=== PATIENT | male | born 1965 | race Caucasian/White ===

== ENCOUNTER 2020-06-09 08:02 | Outpatient (REF) | payer MEDICARE, MEDICAID, SELFPAY | END 2020-06-09 08:03 | disposition home or self-care (01) | LOC: HO.LAB 08:02 | PROVIDERS: PCP Internal Medicine; Visit Provider Internal Medicine | DX: Z20.828 Contact with and (suspected) exposure to other viral communicable diseases (principal) | CPT/HCPCS: C9803; U0003 ==

== ENCOUNTER 2020-09-25 09:31 | Outpatient (REF) | payer OTHER, SELFPAY ==
[2020-09-25 10:58] LABS: MANUAL DIFF FLAG NO
[2020-09-25 11:16] LABS: Basophils Percent Auto 0.2 % (0-2); Eosinophils Absolute Auto 0.1 X10*3/uL (0.0-0.4); Eosinophils Percent Auto 1.6 % (0-4); Hematocrit 44.1 % (42-52); Hemoglobin 14.2 g/dl (14.0-18.0); Imm Gran Abs Auto 0.07 X10*3/uL (0.00-0.03); Imm Gran Pct Auto 0.8 % (0.0-0.4); Lymphocytes Absolute Auto 2.8 X10*3/uL (1.2-4.9); Lymphocytes Percent Auto 31.5 % (20-40); Mean Corpuscular HGB Conc 32.2 g/dl (31.0-36.0); Mean Corpuscular Hemoglobin 27.6 pg (27.0-33.0); Mean Corpuscular Volume 85.8 fL (80-98); Mean Platelet Volume 11.9 fL (9.4-12.4); Monocytes Absolute Auto 0.6 X10*3/uL (0.1-1.2); Monocytes Percent Auto 6.3 % (2-11); Neutrophils Absolute Auto 5.3 X10*3/uL (2.0-8.3); Neutrophils Percent Auto 59.6 % (45-73); Platelet Count 264 X10*3/uL (160-400); Red Blood Count 5.14 X10*6/uL (4.60-5.80); Red Cell Distribution Width 14.4 % (11.0-16.0); White Blood Count 8.9 X10*3/uL (4.8-10.8)
[2020-09-25 11:40] LABS: Alanine Aminotransferase 23 U/L (0-40); Albumin Level 4.1 g/dL (3.5-5.0); Alkaline Phosphatase 86 U/L (39-117); Anion Gap 11 (12-20); Aspartate Amino Transferase 19 U/L (5-37); Bilirubin Total 0.2 mg/dL (0.0-1.0); Blood Urea Nitrogen 6 mg/dL (9-16); Calcium 8.8 mg/dL (8.4-10.2); Carbon Dioxide 27 mmol/L (22-29); Chloride 107 mmol/L (96-108); Cholesterol 165 mg/dL; Estimated Glomerular Filt Rate > 60; Glucose Fasting 104 mg/dL (60-99); HDL Cholesterol 29 mg/dL; LDL Cholesterol Calculated 91 mg/dl; Potassium 4.1 mmol/L (3.3-5.1); Sodium 141 mmol/L (135-145); Total Protein 7.5 g/dL (6.5-8.0); Triglycerides 228 mg/dL
== END 2020-09-25 09:32 | disposition home or self-care (01) ==
LOC: HO.LAB 09:31
PROVIDERS: PCP Internal Medicine; Visit Provider Internal Medicine
DX: K21.9 Gastro-esophageal reflux disease without esophagitis (principal); I10 Essential (primary) hypertension; E78.5 Hyperlipidemia, unspecified
CPT/HCPCS: 36415; 80053; 80061; 85025

== ENCOUNTER 2020-10-27 10:32 | Outpatient (REF) | payer OTHER, SELFPAY ==
--- NOTE | ~2020-10-27 | XR_ITS ---
EXAMINATION: XR CERVICAL SPINE CLINICAL INFORMATION: M54.2 - Cervicalgia COMPARISON: Radiographs cervical spine 08/28/2018 TECHNIQUE: Cervical spine is imaged in 4 views: AP, lateral, odontoid, Fuchs. FINDINGS: Vertebral bodies are normal in height. There is no cervical vertebral compression, spondylolisthesis, destructive process, or prevertebral soft tissue swelling. The odontoid appears intact. There are degenerative disc changes greatest at C6-C7 and C5-C6 with disc narrowing and mild endplate sclerosis and vertebral spurring. There are some soft tissue calcifications again seen bilateral mid neck at superior aspect thyroid cartilage likely carotid artery. XR/XR cervical spine 3V IMPRESSION: 1. Degenerative disc changes C5-C6 and C6-C7. 2. No cervical vertebral compression or spondylolisthesis. 3. Probable carotid artery atherosclerotic calcifications.
== END 2020-10-27 10:33 | disposition home or self-care (01) ==
LOC: HO.XRAY 10:32
PROVIDERS: PCP Internal Medicine; Visit Provider Internal Medicine
DX: M54.2 Cervicalgia (principal)
CPT/HCPCS: 72040

== ENCOUNTER 2020-11-21 10:00 | Outpatient (RCR) | payer OTHER, SELFPAY ==
--- NOTE | 2020-10-28 10:48 | MHC.PT.EP ---
[facility] [place] Office [place] Office [place] Office [address] [place] [address] [phone] F: [phone] F: [phone] F: [phone] F: [phone] Physical Therapy Plan of Care Date of Evaluation: Date of Surgery: N/A Diagnosis: cervicalgia Assessment: pt's symptoms seem postural in nature. pt presents to physical therapy with pain, decreased range of motion, decreased strength, impaired functional mobility, and impaired postural awareness. pt is a good candidate for skilled PT due to age, potential remediation of impairments, typical disease/condition progression and prognosis, comorbidities, and motivation. pt would benefit from tailored strengthening and stretching exercise program, functional training, postural re-training, neuromuscular re-education, modalities as needed for pain, equipment safety demonstration. Frequency and Duration: The patient will be seen 2x/wk for 4 wks Short Term Goals: pt will be I w/ HEP to promote self-management of condition. pt will demo proper sitting posture w/ lumbar roll to promote neutral spine. Senior Living Goals: pt will report a statistically significant improvement in self-reported outcome measure, NDI, to promote return to PLOF. pt will report <2/10 neck pain w/ B shoulder internal rotation to facilitate pain-free return to upper body dressing. Treatment Plan: Modalities to reduce pain, spasms and effusion. Manual therapy to restore motion and function. Therapeutic exercise to improve strength and flexibility. Neuromuscular re-education for posture and balance. Therapeutic activities to return to functional activities of daily living. Electronically signed by: Mali Fisher PT, DPT Please sign and return to therapist. Thank you for your referral.
--- NOTE | 2020-12-05 09:48 | MHC.PT.DC ---
[facility] [place] Office [place] Office [place] Office [address] [place] [address] [phone] F: [phone] F: [phone] F: [phone] F: [phone] Physical Therapy Discharge Report Diagnosis: cervicalgia Date of Surgery: N/A Date of Evaluation: 10/28/20 Date of Discharge: 12/05/20 Treatments to Date: 4 Cancellations to Date: 4 No Shows to Date: 0 Discharge Status: Recommend MD Follow-up Visit Non-compliance Discharge Summary: The patient was reporting symptoms are overall unchanged despite current interventions done to this point. We have held off on cervical stretching and cervical retractions due to reproduction of whistling sensation. He does have a follow-up with Dr. Sifuentes on 12/01/20. We will put him on hold from PT until his follow-up when he will reach out to us whether or not he is to continue w/ therapy at that time. Unfortunately, he has not called our office to either discharge himself or to follow-up with additional appointments. He will be discharged at this time from this physical therapy plan of care. Electronically signed by: Mali Fisher PT, DPT Please sign and return to therapist. Thank you for your referral.
== END 2020-12-05 09:49 | disposition other institution (70) ==
LOC: HO.PT 10:00
PROVIDERS: PCP Internal Medicine; Visit Provider Internal Medicine
DX: M54.2 Cervicalgia (principal)
CPT/HCPCS: 97110; 97112; 97161

== ENCOUNTER 2020-11-21 10:55 | Outpatient (REF) | payer OTHER, SELFPAY ==
[2020-11-21 13:08] LABS: MANUAL DIFF FLAG NO
[2020-11-21 13:15] LABS: Basophils Percent Auto 0.3 % (0-2); Eosinophils Absolute Auto 0.1 X10*3/uL (0.0-0.4); Eosinophils Percent Auto 0.6 % (0-4); Hemoglobin 14.4 g/dl (14.0-18.0); Imm Gran Abs Auto 0.07 X10*3/uL (0.00-0.03); Imm Gran Pct Auto 0.6 % (0.0-0.4); Lymphocytes Absolute Auto 1.7 X10*3/uL (1.2-4.9); Lymphocytes Percent Auto 15.5 % (20-40); Mean Corpuscular Hemoglobin 27.6 pg (27.0-33.0); Mean Corpuscular Volume 86.4 fL (80-98); Monocytes Absolute Auto 0.7 X10*3/uL (0.1-1.2); Monocytes Percent Auto 6.4 % (2-11); Neutrophils Absolute Auto 8.6 X10*3/uL (2.0-8.3); Neutrophils Percent Auto 76.6 % (45-73); Platelet Count 258 X10*3/uL (160-400); Red Blood Count 5.21 X10*6/uL (4.60-5.80); Red Cell Distribution Width 14.6 % (11.0-16.0); White Blood Count 11.2 X10*3/uL (4.8-10.8)
[2020-11-21 13:31] LABS: Glucose Urine UA NEG (NEG); Leukocyte Esterase Urine NEG (NEG); Nitrite Urine NEG (NEG); Specific Gravity - Urine 1.025 (1.005-1.025); Urine Blood TRACE (NEG); Urine Ketones NEG (NEG); Urine Protein NEG (NEG-TRACE)
[2020-11-21 13:36] LABS: Alanine Aminotransferase 18 U/L (0-40); Albumin Level 4.5 g/dL (3.5-5.0); Alkaline Phosphatase 86 U/L (39-117); Anion Gap 11 (12-20); Aspartate Amino Transferase 16 U/L (5-37); Bilirubin Total 0.6 mg/dL (0.0-1.0); Blood Urea Nitrogen 13 mg/dL (9-16); C Reactive Protein 0.87 mg/dL (< or = 0.50); Calcium 9.4 mg/dL (8.4-10.2); Carbon Dioxide 28 mmol/L (22-29); Chloride 104 mmol/L (96-108); Estimated Glomerular Filt Rate > 60; Gamma Glutamyl Transpeptidase 27 U/L (11-51); Glucose Random 91 mg/dL (60-115); Potassium 4.6 mmol/L (3.3-5.1); Sodium 138 mmol/L (135-145)
[2020-11-21 13:42] LABS: Appearance Urine CLEAR; Color Urine YELLOW
[2020-11-21 13:54] LABS: RBC Urine 0-2 /HPF (0); WBC Urine 0 /HPF (0-4)
[2020-11-25 21:37] LABS: Transglutaminase Ab IgG 3 U/mL; Transglutaminase IgA 1 U/mL
== END 2020-11-21 10:56 | disposition home or self-care (01) ==
LOC: HO.LAB 10:55
PROVIDERS: PCP Internal Medicine; Visit Provider Nurse Practitioner
DX: R10.30 Lower abdominal pain, unspecified (principal); K92.1 Melena; R19.7 Diarrhea, unspecified; Z83.71 Family history of colonic polyps
CPT/HCPCS: 36415; 80053; 81001; 82977; 83516; 85025; 86140; 99202

== ENCOUNTER 2020-11-26 11:50 | Outpatient (REF) | payer OTHER, SELFPAY ==
[2020-11-26 12:36] LABS: CDIFF Ag Negative (Negative); CDIFF Internal ctrl Dots and bkg OK (V); CDiff Toxin Negative (Negative)
== END 2020-11-26 11:51 | disposition home or self-care (01) ==
LOC: HO.LNP 11:50
PROVIDERS: Visit Provider Nurse Practitioner
DX: R10.30 Lower abdominal pain, unspecified (principal); K92.1 Melena
CPT/HCPCS: 87045; 87046; 87324; 87338; 87449

== ENCOUNTER 2020-12-01 09:04 | Outpatient (REF) | payer OTHER, SELFPAY ==
[2020-12-01 10:30] LABS: Prostate Specific Antigen 1.48 ng/mL (<0.05-4.0)
== END 2020-12-01 09:05 | disposition home or self-care (01) ==
LOC: HO.LAB 09:04
PROVIDERS: PCP Internal Medicine; Visit Provider Nurse Practitioner Family
DX: Z12.5 Encounter for screening for malignant neoplasm of prostate (principal)
CPT/HCPCS: 36415; 84153

== ENCOUNTER 2021-01-01 18:30 | Outpatient (REF) | payer OTHER, SELFPAY ==
--- NOTE | ~2021-01-01 | MR_ITS ---
EXAMINATION: MRI OF THE BRAIN WITHOUT CONTRAST CLINICAL INFORMATION: Headache. COMPARISON: CT scan of the head 07/28/2016. MRI scan of the brain 04/29/2011. TECHNIQUE: Multiplanar, multisequence MR imaging was performed through the brain using routine sequences without intravenous contrast. FINDINGS: No diffusion abnormalities are identified to suggest an acute or subacute infarct. No mass effect or midline shift is seen. The ventricles are normal in size. There are a few scattered foci of increased T2 and place signal in the subcortical white matter predominantly in the bilateral frontal lobes, most consistent with chronic microvascular ischemic changes. No extra-axial fluid collections are seen. The brainstem is normal. No pathologic magnetic susceptibility artifact is identified on the gradient refocused acquisition. The craniovertebral junction appears normal; the cerebellar tonsils have normal position and contour. Marrow signal is homogenous. The midline structures and pituitary axis appear normal. The major intracranial flow-voids at the level of the wiyot of Valentin are preserved. The dural venous sinus flow-voids are maintained. The mastoid air cells are well-aerated. There is mild mucosal thickening the anterior ethmoid sinuses bilaterally. The nasal septum is deviated to the left. MR/MR head/brain wo con IMPRESSION: 1. There are no acute bleeds or infarcts. No masses are demonstrated. 2. There is paranasal sinus or mastoid ossification. The cerebellar tonsils have normal position and contour. The pituitary axis appears normal.
== END 2021-01-01 18:31 | disposition home or self-care (01) ==
LOC: HO.MRI 18:30
PROVIDERS: Visit Provider Internal Medicine
DX: R51.9 Headache, unspecified (principal)
CPT/HCPCS: 70551

== ENCOUNTER 2021-01-06 09:38 | Outpatient (REF) | payer OTHER, SELFPAY ==
[2021-01-06 10:46] LABS: Blood Urea Nitrogen 10 mg/dL (9-16); Estimated Glomerular Filt Rate > 60
== END 2021-01-06 09:39 | disposition home or self-care (01) ==
LOC: HO.LAB 09:38
PROVIDERS: PCP Internal Medicine; Visit Provider Nurse Practitioner
DX: R10.30 Lower abdominal pain, unspecified (principal); R19.7 Diarrhea, unspecified; K92.1 Melena
CPT/HCPCS: 36415; 82565; 84520

== ENCOUNTER 2021-01-07 11:44 | Outpatient (REF) | payer OTHER, SELFPAY ==
--- NOTE | ~2021-01-07 | CT_ITS ---
EXAMINATION: CT ABDOMEN AND PELVIS WITH CONTRAST CLINICAL INFORMATION: Lower abdominal pain COMPARISON: Previous CT of the abdomen and pelvis September 2017 and pelvic ultrasound December 2017 TECHNIQUE: Multidetector volumetric images were obtained from the superior aspect of the liver through the pubic symphysis following administration 85 mL of Omnipaque 350 intravenous contrast. Sagittal and coronal reformatted images were obtained on the technologist's workstation. Oral contrast: Yes This CT examination was performed using dose optimization techniques as appropriate, variously including the following: *Automated exposure control *Adjustment of mA and/or kV according to patient size (this includes techniques or standardized protocols for targeted exams where dose is matched to indication/reason for exam; i.e. extremities or head) *Use of iterative reconstruction technique DLP: 330 mGy-cm FINDINGS: LUNG BASES: There is a 3 mm peripheral or subpleural left lower lobe nodule that is stable axial image 7 series 8. The lung bases are otherwise clear. LIVER, GALLBLADDER, AND BILIARY TREE: The liver is normal in size, shape, and attenuation. No focal hepatic lesion or biliary ductal dilatation is present. The gallbladder is unremarkable with no evidence of radiopaque gallstones, gallbladder wall thickening, or obvious pericholecystic inflammatory changes. PANCREAS: Unremarkable. SPLEEN: Unremarkable. ADRENAL GLANDS: Unremarkable. KIDNEYS AND URETERS: There is a small 5 mm low-attenuation lesion in the lower pole of the left kidney that is stable 2018 probably represents a small cyst. The kidneys are otherwise unremarkable. BLADDER: Unremarkable. GASTROINTESTINAL TRACT: The small and large bowel are unremarkable. The appendix is unremarkable. ABDOMINAL WALL: There is a small umbilical hernia containing fat. LYMPH NODES: There is shotty bilateral inguinal lymphadenopathy, right greater than left. This is similar to previous exam. There is shotty retroperitoneal and periportal lymphadenopathy similar to previous exam as well. There is no ascites. VASCULAR: There is evidence of atherosclerotic disease. No aneurysm is seen. PELVIC VISCERA: Unremarkable. OSSEOUS STRUCTURES: Unremarkable. CT/CT abdomen pelvis w con IMPRESSION: No acute findings. Shotty lymphadenopathy similar to 2018 exam.
[2021-01-07] MEDS: iohexoL 350 MG/ML 100 ML INFUS..BTL 85 ML IV (14:32)
[2021-01-07] MEDS: Barium Sulfate Oral (Berry) 450 ML ORAL.SUSP 900 ML PO (14:33)
== END 2021-01-07 11:45 | disposition home or self-care (01) ==
LOC: HO.CT 11:44
PROVIDERS: PCP Internal Medicine; Visit Provider Nurse Practitioner
DX: R10.30 Lower abdominal pain, unspecified (principal); K92.1 Melena
CPT/HCPCS: 74177; Q9967

== ENCOUNTER → 2021-01-27 10:22 | Outpatient (BNVA) | payer OTHER, SELFPAY | PROVIDERS: PCP Internal Medicine; Visit Provider Nurse Practitioner | DX: K92.1 Melena (principal); K21.9 Gastro-esophageal reflux disease without esophagitis; R10.30 Lower abdominal pain, unspecified; R19.7 Diarrhea, unspecified; Z83.71 Family history of colonic polyps | CPT/HCPCS: 99212 ==

== ENCOUNTER 2021-06-16 09:31 | Day surgery (SDC) | payer OTHER, SELFPAY ==
--- NOTE | 2021-02-13 08:43 | HO.ANESPROP2 ---
HPI - Anesthesia Eval Consult details Narrative: 55yo M for Colonoscopy PMFSH Active Problems Active Problems: All Active Problems (Updated 12/11/20 @ 16:51 by Orly Bustillo MD) Headache (Acute) Adult general medical exam (Acute) Screening for prostate cancer (Acute) Family history of polyps in the colon (Acute) Diarrhea (Acute) Hematochezia (Acute) Lower abdominal pain (Acute) Colon cancer screening (Acute) Bloody stools (Acute) Smoker (Acute) Neck pain (Acute) Lumbar degenerative disc disease (Acute) Allergic rhinitis (Acute) GERD (gastroesophageal reflux disease) (Acute) Essential hypertension (Acute) Past Medical History Medical History Allergic rhinitis Bloody stools Essential hypertension GERD (gastroesophageal reflux disease) Headache Lumbar degenerative disc disease Neck pain Screening for prostate cancer Smoker Family History Family History Father Myocardial infarction Mother Liver cancer Maternal Grandfather Throat cancer Surgical History Surgical History History of colonoscopy History of excision of mass History of incision and drainage History of retained foreign body fully removed Social History Social History Housing: Apartment Alcohol intake: current Alcohol intake frequency: a few times a month Alcohol type: beer Patient Tobacco Use Status: Current everyday Tobacco user Tobacco use type: Cigarette Cigarettes Per Day: 10 Years Smoked: 40 e-Cigarette/Vaping Use: Never Used Second Hand Smoke Exposure: Yes service: No Current occupational status: unemployed and disabled Meds Allergies Allergy/AdvReac Type Severity Reaction Status Date / Time varenicline [From Chantix] Allergy Intermediate vivid Verified 01/27/21 10:46 dreams Exam Exam Date and Time: February 13, 2021 0843 Pertinent Lab Results Pertinent Lab Results: Laboratory Tests 11/21/20 11/21/20 01/06/21 12:02 12:02 09:52 WBC 11.2 H Hgb 14.4 Hct 45.0 Plt Count 258 Sodium 138 Potassium 4.6 Chloride 104 Carbon Dioxide 28 BUN 10 Creatinine 0.99 Assessment and Plan Assessment Anesthesia Assessment: Chart Reviewed
--- NOTE | 2021-04-03 10:35 | HO.ANESPROP2 ---
HPI - Anesthesia Eval Consult details Narrative: 55yo M for Colonoscopy PMFSH Active Problems Active Problems: All Active Problems (Updated 04/01/21 @ 14:09 by Orly Bustillo MD) Onychomycosis (Acute) Moderate recurrent major depression (Acute) Headache (Acute) Adult general medical exam (Acute) Screening for prostate cancer (Acute) Family history of polyps in the colon (Acute) Diarrhea (Acute) Hematochezia (Acute) Lower abdominal pain (Acute) Colon cancer screening (Acute) Bloody stools (Acute) Smoker (Acute) Neck pain (Acute) Lumbar degenerative disc disease (Acute) Allergic rhinitis (Acute) GERD (gastroesophageal reflux disease) (Acute) Essential hypertension (Acute) Past Medical History Medical History Allergic rhinitis Bloody stools Essential hypertension GERD (gastroesophageal reflux disease) Headache Lumbar degenerative disc disease Moderate recurrent major depression Neck pain Onychomycosis Screening for prostate cancer Smoker Family History Family History Father Myocardial infarction Mother Liver cancer Maternal Grandfather Throat cancer Surgical History Surgical History History of colonoscopy History of excision of mass History of incision and drainage History of retained foreign body fully removed Social History Social History Housing: Apartment Alcohol intake: current Alcohol intake frequency: a few times a month Alcohol type: beer Patient Tobacco Use Status: Current everyday Tobacco user Tobacco use type: Cigarette Cigarettes Per Day: 10 Years Smoked: 40 e-Cigarette/Vaping Use: Never Used Second Hand Smoke Exposure: Yes service: No Current occupational status: unemployed and disabled Meds Allergies Allergy/AdvReac Type Severity Reaction Status Date / Time varenicline [From Chantix] Allergy Intermediate vivid Verified 04/01/21 14:01 dreams Exam Exam Date and Time: April 03, 2021 1035 Pertinent Lab Results Pertinent Lab Results: Laboratory Tests 11/21/20 11/21/20 01/06/21 12:02 12:02 09:52 WBC 11.2 H Hgb 14.4 Hct 45.0 Plt Count 258 Sodium 138 Potassium 4.6 Chloride 104 Carbon Dioxide 28 BUN 10 Creatinine 0.99 Assessment and Plan Assessment Anesthesia Assessment: Chart Reviewed
[2021-06-09 13:23] VITALS: BMI 23.7
--- NOTE | 2021-06-15 10:10 | P.CONAN_ITS ---
Documented by User: Mariangel Quinones NP 06/15/21 10:11 HPI - Anesthesia Eval Consult details Narrative: 55yo M for Colonoscopy PMFSH Active Problems Active Problems: All Active Problems (Updated 04/01/21 @ 14:09 by Orly Bustillo MD) Onychomycosis (Acute) Moderate recurrent major depression (Acute) Headache (Acute) Adult general medical exam (Acute) Screening for prostate cancer (Acute) Family history of polyps in the colon (Acute) Diarrhea (Acute) Hematochezia (Acute) Lower abdominal pain (Acute) Colon cancer screening (Acute) Bloody stools (Acute) Smoker (Acute) Neck pain (Acute) Lumbar degenerative disc disease (Acute) Allergic rhinitis (Acute) GERD (gastroesophageal reflux disease) (Acute) Essential hypertension (Acute) Past Medical History Medical History Allergic rhinitis Bloody stools Essential hypertension GERD (gastroesophageal reflux disease) Headache Lumbar degenerative disc disease Moderate recurrent major depression Neck pain Onychomycosis Screening for prostate cancer Smoker Family History Family History Father Myocardial infarction Mother Liver cancer Maternal Grandfather Throat cancer Surgical History Surgical History History of colonoscopy History of excision of mass History of incision and drainage History of retained foreign body fully removed Social History Social History Housing: Apartment Alcohol intake: current Alcohol intake frequency: a few times a month Alcohol type: beer Patient Tobacco Use Status: Current everyday Tobacco user Tobacco use type: Cigarette Cigarettes Per Day: 10 Years Smoked: 40 e-Cigarette/Vaping Use: Never Used Second Hand Smoke Exposure: Yes Have you been hit, kicked, punched, or otherwise hurt by someone within the past year? If so, by whom?: No Are you DNR?: No Advance Directives: No Advance Directives Information Provided: No Advance Directives on File: No Recently lost weight without trying: No Eating poorly because of decreased appetite: No Nutrition Risks: No Nutritional Risk service: No Current occupational status: unemployed and disabled Meds Allergies Allergy/AdvReac Type Severity Reaction Status Date / Time varenicline [From Chantix] Allergy Intermediate vivid Verified 04/01/21 14:01 dreams Exam Exam Date and Time: June 15, 2021 1010 Height,Weight and Vital Signs: Height 5 ft 11 in Weight 77.111 kg Assessment and Plan Assessment Anesthesia Assessment: Chart Reviewed Documented by User: Dusty Leong 06/16/21 10:31 REPLACED BY [facility] Past Medical History Medical History Allergic rhinitis Bloody stools Essential hypertension GERD (gastroesophageal reflux disease) Headache Lumbar degenerative disc disease Moderate recurrent major depression Neck pain Onychomycosis Screening for prostate cancer Smoker Functional capacity: independent ambulation Family History Family History Father Myocardial infarction Mother Liver cancer Maternal Grandfather Throat cancer Family history of problems with anesthesia: No Surgical History Surgical History History of colonoscopy History of excision of mass History of incision and drainage History of retained foreign body fully removed History of Problems with Anesthesia: No Social History Social History Housing: Apartment Alcohol intake: current Alcohol intake frequency: a few times a month Alcohol type: beer Patient Tobacco Use Status: Current everyday Tobacco user Tobacco use type: Cigarette Cigarettes Per Day: 10 Years Smoked: 40 e-Cigarette/Vaping Use: Never Used Second Hand Smoke Exposure: Yes Have you been hit, kicked, punched, or otherwise hurt by someone within the past year? If so, by whom?: No Are you DNR?: No Advance Directives: No Advance Directives Information Provided: No Advance Directives on File: No Recently lost weight without trying: No Eating poorly because of decreased appetite: No Nutrition Risks: No Nutritional Risk service: No Current occupational status: unemployed and disabled Meds Allergies Allergy/AdvReac Type Severity Reaction Status Date / Time varenicline [From Chantix] Allergy Intermediate vivid Verified 04/01/21 14:01 dreams Exam Airway Mallampati Class: I Loose/Missing/Broken Teeth: Yes (Loose right upper ) Heart: rrr Lungs: distant breath sounds Assessment and Plan Final Anesthetic Review Family History of Problems with Anesthesia: No History of Problems with Anesthesia: No NPO: Yes ASA Class: II Final Preanesthetic Review: Lucie Risks/Benef Reviewed Patient Risk: Intermediate Procedure Risk: Intermediate Anesthetic Plan Anesthetic Plan: MAC: Disposition: Standard PACU
[2021-06-16 09:42] VITALS: BP 125/73; PULSE 61; RESP 18; TEMP 36.3; O2SAT 96
[2021-06-16] MEDS: Lactated Ringers 1,000 ML 100 ML IVCONT (10:23)
--- NOTE | 2021-06-16 11:33 | MHC.SHP ---
Pre-Procedural Eval Section A Date of Service: 06/16/21 The patient is an INPATIENT: No The History & Physical has been completed within 30 days and I have reviewed it.: No Section B Chief Complaint: Colon cancer screening, diarrhea, hx of polyps Details of Present Illness: Colon cancer screening, chronic diarrhea, history of colon polyps Relevant Family History (Specify if Yes): Yes Relevant Social History: None Present Medications: see Short Stay Collaborative assessment Medical History: Significant History (Allergic rhinitis Bloody stools Essential hypertension GERD (gastroesophageal reflux disease) Headache Lumbar degenerative disc disease Neck pain Screening for prostate cancer Smoker) History of Previous Operations: Relevant previous surgery/procedure and date(s) (History of colonoscopy History of excision of mass History of incision and drainage History of retained foreign body fully removed) Allergies: Allergies Allergy/AdvReac Type Severity Reaction Status Date / Time varenicline [From Chantix] Allergy Intermediate vivid Verified 04/01/21 14:01 dreams Review of Systems Sugical H&P ROS: Negative: Constitution, Cardiovascular and Respiratory and Yes, Specify: Gastrointestinal (abd pain, diarrhea) Exam Surgical H&P Exam: Normal: Heart, Normal: Lungs, Normal: Extremities and Normal: Abdomen Plan Diagnosis/Plan: Unchanged I have reviewed the history and physical and performed a pertinent physical examination on my patient. No changes have occurred unless specified.
--- NOTE | 2021-06-16 11:50 | P.BOP_ITS ---
Brief Operative Note Date of Service: 06/16/21 Pre-op diagnosis: COLON CANCER SCREENING, abdominal pain, postprandial diarrhea Post-op diagnosis: other (Colon polyp, diverticulosis, hemorrhoids) Procedure: COLONOSCOPY TILL CECUM WITH BIOPSIES AND SNARE POLYPECTOMY Consent: Indications for the procedure and potential complications of bleeding, perforation, reaction to medications and missed diagnosis were discussed with the patient and informed consent was obtained. Instrument: Olympus PCF H 190 L variable stiffness pediatric colonoscope Monitoring: Vital signs and clinical assessment, intermittent blood pressure monitoring, continuous EKG monitoring, Pulse oximetry and Carbon Dioxide monitoring were done throughout the procedure. Colon withdrawl time was 28 minutes. Procedure: The patient was placed in the left lateral decubitis position and pre-procedure medications were administered. After a digital rectal examination of the ano-rectum, the video colonoscope was inserted into the rectum and advanced through the colon to the cecum. The colonoscope was slowly withdrawn in a retrograde panoramic fashion and the colon mucosa was carefully examined including a retroflexed view of the rectum. Findings and interventions are described below. Procedure Difficulty: Without difficulty Findings: Terminal Ileum: Not evaluated Cecum: Normal Ascending Colon: Normal Transverse Colon: Normal Descending Colon: Normal Sigmoid Colon: A 12-15 mm sessile polyp removed with a hot snare. Moderate diverticulosis Rectum: Normal Ano-rectum: Moderate internal hemorrhoids Colon preparation: Fair due to presence of semi-solid and liquid stools throughout the colon. Impression and Post Procedure Diagnosis: Colonoscopy Findings: One medium sized polyp removed Moderate diverticulosis seen in the []colon Moderate hemorrhoids on retroflexed exam. Plan: Await pathology results Patient has an appointment on 06/29/21 in the GI Clinic with Lakesha Pham NP . Repeat Colonoscopy interval based on path results - in 1-2 years due to fair prep. Above findings were reviewed with the patient and colon polyps and diverticulosis handouts were given in the discharge area Surgeon: Lynn Hall MD Anesthesia: MAC (Dr Leong) Was an Stereo Equipment Installer used for this Procedure?: No Stereo Equipment Installer: Gris Khalil Estimated blood loss (mL): 0 Pathology: other (A. random colon bxs, R/O microscopic colitis B. sigmoid polyp) Condition: stable Disposition: PACU
--- NOTE | 2021-06-16 12:29 | PCN2_ITS ---
Brief Operative Note Date of procedure: 06/16/21 Pre-op diagnosis: Colon cancer screening, abdominal pain, postprandial diarrhea Post-op diagnosis: other (Colon polyp, diverticulosis and hemorrhoids.) Procedure: Procedure:? COLONOSCOPY TILL CECUM WITH BIOPSIES AND SNARE POLYPECTOMY Consent: Indications for the procedure and potential complications of bleeding, perforation, reaction to medications and missed diagnosis were discussed with the patient and informed consent was obtained. Instrument: Olympus PCF H 190 L variable stiffness pediatric colonoscope Monitoring: Vital signs and clinical assessment, intermittent blood pressure monitoring, continuous EKG monitoring, Pulse oximetry and Carbon Dioxide monitoring were done throughout the procedure. Colon withdrawl time was 28 minutes. Procedure: The patient was placed in the left lateral decubitis position and pre-procedure medications were administered. After a digital rectal examination of the ano-rectum, the video colonoscope was inserted into the rectum and advanced through the colon to the cecum. The colonoscope was slowly withdrawn in a retrograde panoramic fashion and the colon mucosa was carefully examined including a retroflexed view of the rectum. Findings and interventions are described below. Procedure Difficulty: Without difficulty Findings: Terminal Ileum: Not evaluated Cecum:? Normal Ascending Colon:? Normal Transverse Colon:? Normal Descending Colon:? Normal Sigmoid Colon:? A 12-15 mm sessile polyp removed with a hot snare. Moderate diverticulosis Rectum:? Normal Ano-rectum:? Moderate internal hemorrhoids Colon preparation: ? Fair due to presence of semi-solid and liquid stools throughout the colon. Impression and Post Procedure Diagnosis: Colonoscopy Findings: One medium sized polyp removed Moderate diverticulosis seen in the []colon Moderate hemorrhoids on retroflexed exam. Plan: Await pathology results Patient has an appointment on 06/29/21 in the GI Clinic with? Lakesha Pham NP? . Repeat Colonoscopy interval based on path results - in 1-2 years due to fair prep. Above findings were reviewed with the patient and colon polyps and diverticulosis handouts were given in the discharge area Surgeon:?Lynn Hall MD Anesthesia: MAC (Dr Leong) Surgeon: Lynn Hall Side Laster Staple: Gris Khalil Estimated blood loss (mL): 0 Pathology: other (A. random colon bxs, R/O microscopic colitis? B. sigmoid polyp) Condition: stable Disposition: PACU
[2021-06-16 12:41] VITALS: BP 114/79; PULSE 59; RESP 19; TEMP 36.3; O2SAT 100
[2021-06-16 12:57] VITALS: BP 129/81; PULSE 54; RESP 16; TEMP 36.3; O2SAT 99
== END 2021-06-16 13:35 | disposition home or self-care (01) ==
PROVIDERS: PCP Internal Medicine; Visit Provider Internal Medicine Gastroenterology
PROC: 0DJD8ZZ Inspection of Lower Intestinal Tract, Via Natural or Artificial Opening Endoscopic (ICD-10-PCS; CPT 45378; principal; 2021-06-16 11:10)
DX: Z12.11 Encounter for screening for malignant neoplasm of colon (principal); Z83.71 Family history of colonic polyps; D12.5 Benign neoplasm of sigmoid colon; K57.30 Diverticulosis of large intestine without perforation or abscess without bleeding; K64.8 Other hemorrhoids; R19.7 Diarrhea, unspecified; K21.9 Gastro-esophageal reflux disease without esophagitis; I10 Essential (primary) hypertension; F17.210 Nicotine dependence, cigarettes, uncomplicated; Z79.899 Other long term (current) drug therapy
CPT/HCPCS: 45385; 45380; 88305

== ENCOUNTER → 2021-06-29 12:57 | Outpatient (BNVA) | payer OTHER, SELFPAY | PROVIDERS: PCP Internal Medicine; Referring Provider Internal Medicine; Visit Provider Nurse Practitioner | DX: K21.9 Gastro-esophageal reflux disease without esophagitis (principal); K63.5 Polyp of colon; Z83.71 Family history of colonic polyps | CPT/HCPCS: 99212 ==

== ENCOUNTER 2021-09-01 09:32 | Outpatient (REF) | payer OTHER, SELFPAY ==
--- NOTE | 2021-09-01 11:21 | PFT_ITS ---
Forced vital capacity 97%. FEV1 99%. FEV1/FVC ratio 80. EVI89-95 is 110% and MVV 98%. Post bronchodilator therapy, there is no change. Total lung capacity 97% and residual volume 99%. Diffusion capacity 76%. CONCLUSION: Normal pulmonary function test. No evidence of obstructive or restrictive pulmonary disorder. MD ANDREW Cooley/SHERIF / [id number]
== END 2021-09-01 09:33 | disposition home or self-care (01) ==
LOC: HO.RESP 09:32
PROVIDERS: PCP Internal Medicine; Visit Provider Internal Medicine
DX: R06.00 Dyspnea, unspecified (principal)
CPT/HCPCS: 94060; 94727; 94729

== ENCOUNTER → 2021-11-30 12:47 | Outpatient (BNVA) | payer OTHER, SELFPAY | PROVIDERS: PCP Internal Medicine; Referring Provider Internal Medicine; Visit Provider Nurse Practitioner | DX: K21.9 Gastro-esophageal reflux disease without esophagitis (principal); K63.5 Polyp of colon; R11.2 Nausea with vomiting, unspecified; Z83.71 Family history of colonic polyps | CPT/HCPCS: 99212 ==

== ENCOUNTER 2021-12-04 09:08 | Outpatient (REF) | payer OTHER, SELFPAY ==
[2021-12-04 09:31] LABS: MANUAL DIFF FLAG NO
[2021-12-04 10:17] LABS: Basophils Percent Auto 0.2 % (0-2); Eosinophils Absolute Auto 0.1 X10*3/uL (0.0-0.4); Hemoglobin 13.6 g/dl (14.0-18.0); Imm Gran Abs Auto 0.08 X10*3/uL (0.00-0.03); Imm Gran Pct Auto 0.8 % (0.0-0.4); Lymphocytes Absolute Auto 2.4 X10*3/uL (1.2-4.9); Lymphocytes Percent Auto 22.8 % (20-40); Mean Corpuscular HGB Conc 33.2 g/dl (31.0-36.0); Mean Corpuscular Hemoglobin 27.8 pg (27.0-33.0); Mean Corpuscular Volume 83.7 fL (80.0-98.0); Mean Platelet Volume 11.7 fL (9.4-12.4); Monocytes Absolute Auto 0.6 X10*3/uL (0.1-1.2); Monocytes Percent Auto 6.1 % (2-11); Neutrophils Absolute Auto 7.2 x10*3/uL (2.0-8.3); Neutrophils Percent Auto 69.1 % (45-73); Platelet Count 341 X10*3/uL (160-400); Red Cell Distribution Width 14.2 % (11.0-16.0); White Blood Count 10.4 X10*3/uL (4.8-10.8)
[2021-12-04 10:48] LABS: Alanine Aminotransferase 12 U/L (0-40); Albumin Level 4.4 g/dL (3.5-5.0); Alkaline Phosphatase 93 U/L (39-117); Anion Gap 12 (12-20); Aspartate Amino Transferase 15 U/L (5-37); Bilirubin Total 0.5 mg/dL (0.0-1.0); Blood Urea Nitrogen 11 mg/dL (9-16); Calcium 9.5 mg/dL (8.4-10.2); Carbon Dioxide 29 mmol/L (22-29); Chloride 100 mmol/L (96-108); Cholesterol 166 mg/dL; Estimated Glomerular Filt Rate > 60; Glucose Fasting 99 mg/dL (60-99); HDL Cholesterol 30 mg/dL; LDL Cholesterol Calculated 106 mg/dl; Potassium 3.8 mmol/L (3.3-5.1); Sodium 137 mmol/L (135-145); Total Protein 8.1 g/dL (6.5-8.0); Triglycerides 154 mg/dL
[2021-12-10 06:36] LABS: Transglutaminase Ab IgG <1.0 U/mL; Transglutaminase IgA <1.0 U/mL
== END 2021-12-04 09:09 | disposition home or self-care (01) ==
LOC: HO.LAB 09:08
PROVIDERS: Absent Provider Nurse Practitioner; PCP Internal Medicine; Visit Provider Internal Medicine
DX: K21.9 Gastro-esophageal reflux disease without esophagitis (principal); I10 Essential (primary) hypertension; R11.2 Nausea with vomiting, unspecified
CPT/HCPCS: 36415; 80053; 80061; 84443; 85025; 86364

== ENCOUNTER 2022-01-06 08:33 | Outpatient (REF) | payer OTHER, SELFPAY ==
--- NOTE | ~2022-01-06 | US_ITS ---
EXAMINATION: US ABDOMEN COMPLETE CLINICAL INFORMATION: Nausea with vomiting, unspecified. COMPARISON: CT abdomen and pelvis 01/07/2021. Ultrasound abdomen 11/22/2013. TECHNIQUE: Real-time imaging of the abdominal viscera. FINDINGS: PANCREAS: Normal. The visualized pancreatic head and body are normal in appearance. The remainder of the pancreas is obscured from visualization by the overlying bowel gas. ABDOMINAL AORTA: The proximal, mid and distal segments are nonaneurysmal. There is distal atherosclerotic plaque. INFERIOR VENA CAVA: Visualized portions are normal. LIVER: Normal. The liver is normal in size. The liver contour is normal. Parenchymal echogenicity is normal. No focal hepatic lesion. There is no intrahepatic biliary duct dilatation seen. GALLBLADDER: Normal. The gallbladder is physiologically distended without evidence of stones, sludge, polyps, wall thickening or pericholecystic fluid. COMMON BILE DUCT: Normal in caliber measuring 0.2 cm in diameter. RIGHT KIDNEY: Normal. No hydronephrosis. No renal calculi or focal parenchymal lesions. The kidney measures 10.6 cm in maximum dimension. LEFT KIDNEY: Normal. No hydronephrosis. No renal calculi or focal parenchymal lesions. The kidney measures 11.2 cm in maximum dimension. SPLEEN: Normal. The spleen measures 10.9 cm in maximum dimension. FREE FLUID: None. US/US abdomen complete IMPRESSION: Unremarkable abdominal ultrasound examination, with imaging of the pancreatic tail technically limited.
== END 2022-01-06 08:34 | disposition home or self-care (01) ==
LOC: HO.US 08:33
PROVIDERS: PCP Internal Medicine; Visit Provider Nurse Practitioner
DX: R11.2 Nausea with vomiting, unspecified (principal)
CPT/HCPCS: 76700

== ENCOUNTER → 2022-01-27 08:14 | Outpatient (BNVA) | payer OTHER, SELFPAY | PROVIDERS: PCP Internal Medicine; Visit Provider Nurse Practitioner | DX: K63.5 Polyp of colon (principal); K21.9 Gastro-esophageal reflux disease without esophagitis; R11.2 Nausea with vomiting, unspecified; R19.7 Diarrhea, unspecified; F33.1 Major depressive disorder, recurrent, moderate | CPT/HCPCS: 99212 ==

== ENCOUNTER → 2022-02-18 15:38 | Outpatient (BNVA) | payer OTHER, SELFPAY | PROVIDERS: PCP Internal Medicine; Visit Provider Surgery | DX: L73.2 Hidradenitis suppurativa (principal) | CPT/HCPCS: 99202 ==

== ENCOUNTER 2022-02-24 08:38 | Emergency (ER) | payer OTHER, SELFPAY ==
[2022-02-24 08:42] VITALS: BP 141/95; PULSE 65; RESP 18; TEMP 36.6; O2SAT 98; BMI 23.4
[2022-02-24] MEDS: Famotidine/PF 20 MG/2 ML VIAL IVPUSH (09:39)
[2022-02-24] MEDS: diphenhydrAMINE HCL 50 MG/ML VIAL IVPUSH (09:42)
[2022-02-24 09:43] LABS: Strep A Nucleic Acid Negative (Negative)
[2022-02-24] MEDS: methylPREDNISolone Sod Succ 125 MG/2 ML VIAL IVPUSH (09:43)
[2022-02-24 09:58] LABS: COVID-19 Test Negative (Negative)
--- NOTE | 2022-02-24 10:04 | ED.ALLEREA ---
HPI - Allergic Reaction General Chief complaint: Allergic Reaction Stated complaint: allergic reaction to food Time Seen by Provider: 02/24/22 09:18 Source: patient Mode of arrival: ambulatory History of Present Illness HPI narrative: 56-year-old male with a past medical history of allergic rhinitis, HTN, GERD, hidradenitis, presenting to the ED complaining of throat pruritus, and sore throat worsening since this morning. Admits was started on Amoxicillin for tooth extraction 2 days ago, states itching started soon afterwards. Reports pain with swallowing, dry cough, nasal congestion. Reports mild throat tightness/swelling. Denies CP, SOB, ear pain, rash. Denies other new exposures MD complaint: allergic reaction and other Onset (ago): day(s) Exposure: medication Related Data Previous Rx's Medication Instructions Recorded blood pressure test kit-large #1 ea 07/09/20 ([facility] Blood Pressure Monitor kit) amitriptyline 25 mg tablet 25 mg PO BEDTIME #90 tabs 01/06/21 loratadine 10 mg tablet 10 mg PO DAILY PRN allergy 08/24/21 symptoms 90 days #90 tabs dicyclomine 20 mg tablet 20 mg PO QID 30 days #120 tabs 11/30/21 omeprazole 40 mg capsule,delayed 40 mg PO DAILY 30 days #30 caps 11/30/21 release buspirone 7.5 mg tablet 7.5 mg PO BID 90 days #180 tabs 12/31/21 terbinafine HCl 250 mg tablet 250 mg PO DAILY 90 days #90 tabs 12/31/21 peg 3350-electrolytes 236 240 ml PO Q10M 1 day #4,000 mL 01/27/22 gram-22.74 gram-6.74 gram-5.86 gram solution (Golytely) sucralfate 1 gram tablet (Carafate) 2 g PO BEDTIME #60 tabs 01/27/22 fluoxetine 20 mg capsule 20 mg PO QAM 90 days #90 caps 02/09/22 hydrochlorothiazide 25 mg tablet 25 mg PO DAILY 90 days #90 tabs 02/09/22 metoclopramide HCl 5 mg tablet 5 mg PO TID 30 days #90 tabs 02/09/22 tramadol 50 mg tablet 50 mg PO Q6H PRN pain 30 days #120 02/09/22 tabs clindamycin HCl 300 mg capsule 300 mg PO TID 5 days #15 caps 02/24/22 diphenhydramine HCl 25 mg capsule 25 mg PO TID PRN allergic reaction 02/24/22 (Benadryl) #14 caps prednisone 20 mg tablet 40 mg PO DAILY 5 days #10 tabs 02/24/22 Allergies Allergy/AdvReac Type Severity Reaction Status Date / Time varenicline [From Chantix] Allergy Intermediate vivid Verified 02/18/22 15:50 dreams Review of Systems Review of Systems: Constitutional: No Fever, No Chills ENT/Mouth: No Ear Pain, No Nasal Congestion, No Sinus Pain, No Hoarseness, + sore throat, + Rhinorrhea, No Swallowing Difficulty, +painful swallowing, +itchy throat Cardiovascular: No Chest Pain, No SOB Respiratory: + Cough, No Sputum, No Wheezing Gastrointestinal: No Nausea, No Vomiting, No Diarrhea, No Constipation, No Abdominal pain Genitourinary: No Dysuria, No Hematuria, No Urinary Incontinence/retention Musculoskeletal: No joint pain, No Myalgias, No Joint Swelling Skin: No Skin Lesions, No rash Neuro: No Weakness, No Numbness Yes all other systems are reviewed and are negative Constitutional: Constitutional: Reports as per [facility] Past Medical History Attestation statement: The following information was validated with the patient. Medical History Allergic rhinitis Bloody stools Dyspnea Essential hypertension GERD (gastroesophageal reflux disease) Headache Hearing loss Hidradenitis suppurativa Lumbar degenerative disc disease Moderate recurrent major depression Neck pain Onychomycosis Screening for prostate cancer Smoker Surgical History History of colonoscopy History of excision of mass History of incision and drainage History of retained foreign body fully removed Family History Family History Father Myocardial infarction Mother Liver cancer Maternal Grandfather Throat cancer Social History Social History Housing: Apartment Alcohol intake: current Alcohol intake frequency: a few times a month Alcohol type: beer Patient Tobacco Use Status: Current everyday Tobacco user Tobacco use type: Cigarette Cigarettes Per Day: 2 Years Smoked: 40 e-Cigarette/Vaping Use: Never Used Second Hand Smoke Exposure: Yes Advance Directives: No Advance Directives Information Provided: No service: No Current occupational status: unemployed and disabled Cognitive needs: No Hearing needs: No Vision needs: No Physical Exam ED Vital Signs: Vital Signs - 24 hr 02/24/22 08:42 Temperature 97.8 F Pulse Rate 65 Respiratory Rate 18 Blood Pressure 141/95 H Pulse Oximetry 98 Oxygen Delivery Method Room Air BMI result Body Mass Index 23.4 Const General: cooperative, healthy appearing, comfortable, no acute distress, well developed, alert and awake Orientation/consciousness: patient oriented x3 Limitations: no limitations HENMT Head: Yes normal to inspection and Yes atraumatic Ears: hearing grossly normal bilaterally General nose exam: Normal external nose present Face and sinus: Yes normal facial exam Throat: Yes uvula midline, No peritonsillar mass, Yes posterior oropharynx abnormal (Erythematous), No uvula laterally displaced and Yes uvular edema (+uveitis) Eyes General: appearance normal, both eyes and all related structures EOM: EOMs intact bilaterally Neck Neck: Yes normal visual inspection, Yes no lymphadenopathy, Yes no meningeal signs and No anterior neck swelling Resp Effort & Inspection: normal respiratory effort, no audible wheezes, not labored, no respiratory distress and no stridor Auscultation: clear to auscultation bilaterally, no crackles, no rales, no rhonchi and no wheezes Cardio Rate: regular rate Heart sounds: S1 normal heart sound present and S2 normal heart sound present Skin Rashes: no rashes Wounds: no wounds Neuro General: patient oriented x3, tone normal and no meningeal signs Gait exam (Neuro): Normal gait present Extrem General: Yes normal to inspection Course Course Course Narrative: -COVID-19 and rapid strep negative -1125--patient reports symptomatic improvement after IV medications given in the ED. discussed with patient to stop previously prescribed amoxicillin, will prescribe clindamycin as replacement. Recommended close follow-up with PCP/his dentist. On re-evaluation uvula swelling has decreased, patient continues to talk in complete sentences, no respiratory distress. Results discussed with patient including worrisome signs and symptoms and strict return precautions, and when to return to the emergency department. They verbalized understanding and feel safe for discharge at this time. MDM - Allergic Reaction MDM Narrative Medical decision making narrative: 56-year-old male with a past medical history of allergic rhinitis, HTN, GERD, hidradenitis, presenting to the ED complaining of throat pruritus, and sore throat worsening since this morning. On exam vital signs stable, NAD, nontoxic appearing, talking in complete sentences, no audible wheeze/stridor. Uvula notably swollen, not deviated with posterior oropharyngeal erythema, no appreciable tonsillar exudates. Lungs CTA. Concern for allergic reaction from amoxicillin vs pharyngitis vs viral illness. No evidence of angioedema/anaphylaxis. Plan: IV Solu-Medrol, Pepcid, Benadryl, observe and reassess Medical Records Attestation: I reviewed the patient's medical records. Lab Data Attestation: I reviewed the patient's lab results. Labs: Lab Results 02/24/22 02/24/22 Range/Units 09:25 09:25 COVID-19 (ROCIO) Negative (Negative) COVID-19 Clin Com See Note S. pyogenes GrpA KATHARINA Negative (Negative) Discharge Plan Discharge Clinical Impression: Allergic reaction Patient Disposition: Home, Self-Care Instructions: General Allergic Reaction (ED) Additional Instructions: You likely had an allergic reaction to your amoxicillin. Stop taking amoxicillin and start taking clindamycin for the next 5 days. Prednisone as a steroid which will help with her oral swelling. In addition Benadryl help with allergic reaction symptoms/itching. This will make you drowsy. You may also take Zyrtec or Claritin during the day for allergy symptoms, this will not make you drowsy Please have close follow-up with her doctor/dentist. If symptoms persist or worsen, he develops persistent or worsening oral swelling, difficulty breathing, coughing, wheezing return to the ED immediately Prescriptions: New prednisone 20 mg tablet 40 mg PO DAILY 5 Days Qty: 10 0RF diphenhydramine HCl [Benadryl] 25 mg capsule 25 mg PO TID PRN (Reason: allergic reaction) Qty: 14 0RF clindamycin HCl 300 mg capsule 300 mg PO TID 5 Days Qty: 15 0RF No Action amitriptyline 25 mg tablet 25 mg PO BEDTIME Qty: 90 2RF loratadine 10 mg tablet 10 mg PO DAILY PRN (Reason: allergy symptoms) 90 Days Qty: 90 1RF hydrochlorothiazide 25 mg tablet 25 mg PO DAILY 90 Days Qty: 90 1RF fluoxetine 20 mg capsule 20 mg PO QAM 90 Days Qty: 90 1RF metoclopramide HCl 5 mg tablet 5 mg PO TID 30 Days Qty: 90 1RF tramadol 50 mg tablet 50 mg PO Q6H PRN (Reason: pain) 30 Days Qty: 120 0RF (DME) blood pressure test kit-large [[facility] Blood Pressure Monitr] Kit See Rx Instructions .ROUTE .MEDSUPPLY Qty: 1 0RF Rx Instructions: As directed terbinafine HCl 250 mg tablet 250 mg PO DAILY 90 Days Qty: 90 0RF buspirone 7.5 mg tablet 7.5 mg PO BID 90 Days Qty: 180 0RF omeprazole 40 mg capsule,delayed release(DR/EC) 40 mg PO DAILY 30 Days Qty: 30 6RF dicyclomine 20 mg tablet 20 mg PO QID 30 Days Qty: 120 6RF Hold Instructions: Doctor's Order sucralfate [Carafate] 1 gram tablet 2 g PO BEDTIME Qty: 60 3RF peg 3350-electrolytes [Golytely] 236-22.74-6.74 -5.86 gram recon soln 240 ml PO Q10M 1 Days Qty: 4000 0RF Rx Instructions: until fecal effluent is clear; do not exceed a total volume of 2,000 mL Referrals: Orly Edmondson MD [Primary Care Provider] - 2 days
== END 2022-02-24 12:04 | disposition home or self-care (01) ==
PROVIDERS: Physician Assistant; Emergency Provider Emergency Medicine; PCP Internal Medicine
DX: L50.0 Allergic urticaria (principal); J02.9 Acute pharyngitis, unspecified; Z20.822 Contact with and (suspected) exposure to COVID-19; Z79.899 Other long term (current) drug therapy
CPT/HCPCS: 36415; 87635; 87651; 96374; 96375; 99283; 99284; J1200; J2930

== ENCOUNTER → 2022-03-10 09:11 | Outpatient (BNVA) | payer OTHER, SELFPAY | PROVIDERS: PCP Internal Medicine; Visit Provider Nurse Practitioner | DX: K58.0 Irritable bowel syndrome with diarrhea (principal); K21.9 Gastro-esophageal reflux disease without esophagitis; R11.2 Nausea with vomiting, unspecified; K63.5 Polyp of colon; Z79.899 Other long term (current) drug therapy; Z86.010 Personal history of colon polyps | CPT/HCPCS: 99212 ==

== ENCOUNTER 2022-05-27 10:51 | Day surgery (SDC) | payer OTHER, SELFPAY ==
--- NOTE | 2022-05-26 12:07 | HO.ANESPROP2 ---
Documented by User: Mariangel Quinones NP 05/26/22 12:08 HPI - Anesthesia Eval Consult details Narrative: 56yo M for Colonoscopy PMFSH Active Problems Active Problems: All Active Problems (Updated 03/10/22 @ 11:55 by SÁNCHEZ Light) Irritable bowel syndrome with diarrhea (Acute) Hidradenitis suppurativa (Acute) Anxiety (Acute) Nausea and vomiting (Acute) Hearing loss (Acute) Dyspnea (Acute) Sessile colonic polyp (Acute) Onychomycosis (Acute) Moderate recurrent major depression (Acute) Headache (Acute) Adult general medical exam (Acute) Screening for prostate cancer (Acute) Family history of polyps in the colon (Acute) Diarrhea (Acute) Hematochezia (Acute) Lower abdominal pain (Acute) Colon cancer screening (Acute) Bloody stools (Acute) Smoker (Acute) Neck pain (Acute) Lumbar degenerative disc disease (Acute) Allergic rhinitis (Acute) GERD (gastroesophageal reflux disease) (Acute) Essential hypertension (Acute) Past Medical History Medical History Allergic rhinitis Bloody stools Dyspnea Essential hypertension GERD (gastroesophageal reflux disease) Headache Hearing loss Hidradenitis suppurativa Lumbar degenerative disc disease Moderate recurrent major depression Neck pain Onychomycosis Screening for prostate cancer Smoker Family History Family History Father Myocardial infarction Mother Liver cancer Maternal Grandfather Throat cancer Family history of problems with anesthesia: No Surgical History Surgical History History of colonoscopy History of excision of mass History of incision and drainage History of retained foreign body fully removed History of Problems with Anesthesia: No Social History Social History Housing: Apartment Alcohol intake: current Alcohol intake frequency: a few times a month Alcohol type: beer Patient Tobacco Use Status: Current everyday Tobacco user Tobacco use type: Cigarette Cigarettes Per Day: 5 Years Smoked: 40 e-Cigarette/Vaping Use: Never Used Second Hand Smoke Exposure: Yes service: No Current occupational status: unemployed and disabled Cognitive needs: No Hearing needs: No Vision needs: No Meds Allergies Allergy/AdvReac Type Severity Reaction Status Date / Time amoxicillin Allergy Severe Anaphylaxis Verified 03/10/22 09:42 varenicline [From Chantix] Allergy Intermediate vivid Verified 03/10/22 09:40 dreams Home Medications Medication Instructions Recorded Confirmed Last Taken Type terbinafine HCl 250 mg tablet 250 mg PO DAILY 03/10/22 05/24/22 Unknown History Exam Exam Date and Time: May 26, 2022 1207 Pertinent Lab Results Pertinent Lab Results: Laboratory Tests 12/04/21 09:29 WBC 10.4 Hgb 13.6 L Hct 41.0 L Plt Count 341 Assessment and Plan Assessment Anesthesia Assessment: Chart Reviewed Final Anesthetic Review Family History of Problems with Anesthesia: No History of Problems with Anesthesia: No Documented by User: Dusty Leong MD 05/27/22 17:38 PMFSH Past Medical History Medical History Allergic rhinitis Bloody stools Dyspnea Essential hypertension GERD (gastroesophageal reflux disease) Headache Hearing loss Hidradenitis suppurativa Lumbar degenerative disc disease Moderate recurrent major depression Neck pain Onychomycosis Screening for prostate cancer Smoker Functional capacity: independent ambulation Family History Family History Father Myocardial infarction Mother Liver cancer Maternal Grandfather Throat cancer Surgical History Surgical History History of colonoscopy History of excision of mass History of incision and drainage History of retained foreign body fully removed Social History Social History Housing: Apartment Alcohol intake: current Alcohol intake frequency: a few times a month Alcohol type: beer Patient Tobacco Use Status: Current everyday Tobacco user Tobacco use type: Cigarette Cigarettes Per Day: 5 Years Smoked: 40 e-Cigarette/Vaping Use: Never Used Second Hand Smoke Exposure: Yes service: No Current occupational status: unemployed and disabled Cognitive needs: No Hearing needs: No Vision needs: No Meds Allergies Allergy/AdvReac Type Severity Reaction Status Date / Time amoxicillin Allergy Severe Anaphylaxis Verified 03/10/22 09:42 varenicline [From Chantix] Allergy Intermediate vivid Verified 03/10/22 09:40 dreams Home Medications Medication Instructions Recorded Confirmed Last Taken Type terbinafine HCl 250 mg tablet 250 mg PO DAILY 03/10/22 05/24/22 Unknown History Exam Airway Mallampati Class: III Neck ROM: Limited Loose/Missing/Broken Teeth: Yes (Poor dentition overall , multiple ,missing ) Heart: S1,S2 Lungs: b/l breath sounds Assessment and Plan Assessment Anesthesia Assessment: Anesthesia Plan Discussed Final Anesthetic Review NPO: Yes ASA Class: III Final Preanesthetic Review: Meds/Allgs Chart Reviewed, Consent Obtained/Reviewed and Anes Risks/Benef Reviewed Patient Risk: Intermediate Procedure Risk: Intermediate Anesthetic Plan Anesthetic Plan: MAC: Disposition: Standard PACU
--- NOTE | 2022-05-27 11:03 | P.HPSUR_ITS ---
Pre-Procedural Eval Section A Date of Service: 05/27/22 Section B Chief Complaint: diarrhea Details of Present Illness: also has reflux. Relevant Family History (Specify if Yes): No Relevant Social History: Tobacco Use Present Medications: see Short Stay Collaborative assessment Medical History: Significant History (Allergic rhinitis Bloody stools Dyspnea Essential hypertension GERD (gastroesophageal reflux disease) Headache Hearing loss Hidradenitis suppurativa Lumbar degenerative disc disease Moderate recurrent major depression Neck pain Onychomycosis Screening for prostate cancer Smoker) History of Previous Operations: Relevant previous surgery/procedure and date(s) (History of colonoscopy History of excision of mass History of incision and brady skye History of retained foreign body fully removed) Allergies: Allergies Allergy/AdvReac Type Severity Reaction Status Date / Time amoxicillin Allergy Severe Anaphylaxis Verified 03/10/22 09:42 varenicline [From Chantix] Allergy Intermediate vivid Verified 03/10/22 09:40 dreams Review of Systems Sugical H&P ROS: Negative: Constitution, Cardiovascular, Respiratory, Neurological, Psychiatric, Hem-Onc, Allergic/Immunologic, Gastrointestinal, Genitourinary, Musculoskeletal, Integumentary, Endocrine and Eyes/Ears/Nose/Throat Exam Surgical H&P Exam: Normal: HEENT, Normal: Heart, Normal: Lungs, Normal: Extremities, Normal: Abdomen, Normal: Skin and Normal: Neurological Plan Diagnosis/Plan: Unchanged I have reviewed the history and physical and performed a pertinent physical examination on my patient. No changes have occurred unless specified. Will add EGD due to ongoing diarrhea and r/o gastric or small bowel causes of this.
--- NOTE | 2022-05-27 11:41 | P.OP_ITS ---
Operative Note Operative Note Date of Service: 05/27/22 Narrative: Operative Information Procedure Description: EGD, Colonoscopy Indication: diarrhea Anesthesia: MAC FLEXIBLE TRANSORAL UPPER GASTROINTESTINAL ENDOSCOPY AND COLONOSCOPY PROCEDURE NOTE UPPER ENDOSCOPY Consent: Indications for the procedure and potential complications of bleeding, perforation, reaction to medications and missed diagnosis were discussed with the patient and informed consent was obtained. Instrument: Olympus GIF H 190 J mid size upper endoscope Monitoring: Vital signs and clinical assessment, continuous EKG monitoring, Pulse oximetry, Carbon Dioxide monitoring and blood pressure monitoring were done throughout the procedure. Procedure: The patient was placed in the left lateral decubitis position and pre-procedure medications were administered and a bite block was placed. The endoscope was inserted into the mouth and advanced under direct vision to the third part of duodenum. A careful inspection was made as the upper endoscope was withdrawn including a retroflexed examination of the proximal stomach; Findings and interventions are described below. Findings: Larynx:normal Esophagus: GE junction at 42 cm, diaphragm hiatus at 42 cm, midl esophagitis with irregular Z line, bx taken to r/o Barretts, also distal esophagus bx taken Stomach: Patchy erythema with areas of pallor. Biopsies were obtained. Grade 2 flap valve on retroflexed examination of the cardia. Duodenum: Normal bulb and descending duodenum, bx taken Intervention: Biopsies as noted above COLONOSCOPY Instrument: Olympus variable stiffness pediatric scope 190L Colonoscopy Monitoring: Vital signs and clinical assessment, continuous EKG monitoring, Pulse oximetry, Carbon Dioxide monitoring and blood pressure monitoring were done throughout the procedure. Colon withdrawal time was 10 minutes. Procedure: The patient was placed in the left lateral decubitis position and pre-procedure medications were administered. After a digital rectal examination of the ano-rectum, the video colonoscope was inserted into the rectum and advanced through the colon to the cecum/TI. The colonoscope was slowly withdrawn in a retrograde panoramic fashion and the colon mucosa was carefully examined including a retroflexed view of the rectum. Findings and interventions are described below. Procedure Difficulty: easy Findings: Random colon bx taken Terminal Ileum-normal, bx taken Cecum: 10 mm sessile polyp removed with cold snare Ascending Colon: normal Transverse Colon -normal Descending Colon: mild patchy erythema Sigmoid Colon: mild diverticulosis, 10 mm sessile polyp removed with cold snare, patchy erythema Rectum: Retroflexion with small internal hemorrhoids, grade I Anorectum - normal Colon preparation: [place] Bowel Preparation Scale Right colon; 2 Transverse colon: 2 Left colon; 2 (0 = Unprepared colon segment with mucosa not seen due to solid stool that cannot be cleared. 1 = Portion of mucosa of the colon segment seen, but other areas of the colon segment not well seen due to staining, residual stool and/or opaque liquid. 2 = Minor amount of residual staining, small fragments of stool and/or opaque liquid, but mucosa of colon segment seen well. 3 = Entire mucosa of colon segment seen well with no residual staining, small fragments of stool or opaque liquid) Impression and Post Procedure Diagnosis: Endoscopy Findings: gastritis possible barretts esophagitis Colonoscopy Findings: polyps internal hemorrhoids diverticular disease non specific mild colitis Plan: Await Pathology results Repeat Colonoscopy in 5 years if adenomatous polyps, 10 yrs if benign or earlier if clinically indicated High fiber diet leaflet avoid straining at stool, epsom salts and sitz bath, anusol supps or cream if colitis confirmed then can check fecal calprotectin and consider CTe to r/o crohns Above findings were reviewed with the patient and relevant handouts were provided if indicated.
[2022-05-27 11:44] VITALS: BMI 23.7
[2022-05-27 11:53] VITALS: BP 128/80; PULSE 69; RESP 16; TEMP 36.7; O2SAT 97
[2022-05-27] MEDS: Lactated Ringers 1,000 ML 100 ML IVCONT (11:55)
[2022-05-27 12:52] VITALS: BP 106/67; PULSE 77; RESP 16; TEMP 36.5; O2SAT 96
[2022-05-27 13:07] VITALS: BP 96/64; PULSE 67; RESP 16; TEMP 36.4; O2SAT 94
[2022-05-27 13:22] VITALS: BP 114/80; PULSE 73; RESP 16; TEMP 36.4; O2SAT 94
[2022-05-27 13:37] VITALS: BP 116/87; PULSE 69; RESP 16; TEMP 36.6; O2SAT 95
[2022-05-27 15:13] LABS: Adenovirus F 40/41 Not Detected (Not Detect.); Astrovirus Not Detected (Not Detect.); Campylobacter Not Detected (Not Detect.); Cryptosporidium Not Detected (Not Detect.); Cyclospora cayetanensis Not Detected (Not Detect.); E. coli EAEC Not Detected (Not Detect.); E. coli EPEC Not Detected (Not Detect.); E. coli ETEC Not Detected (Not Detect.); E. coli STEC Not Detected (Not Detect.); Entamoeba histolytica Not Detected (Not Detect.); Giardia lamblia Not Detected (Not Detect.); Norovirus GI/GII Not Detected (Not Detect.); Plesiomonas shigelloides Not Detected (Not Detect.); Rotavirus A Not Detected (Not Detect.); Salmonella Not Detected (Not Detect.); Sapovirus Not Detected (Not Detect.); Shigella sp./EIEC Not Detected (Not Detect.); Vibrio Not Detected (Not Detect.); Vibrio Cholerae Not Detected (Not Detect.); Yersinia enterocolitica Not Detected (Not Detect.)
[2022-05-27 15:39] LABS: CDiff Gene PCR POSITIVE (Negative)
[2022-05-27 17:19] LABS: CDIFF Internal ctrl Dots and bkg OK (V); CDiff Toxin Negative (Negative)
== END 2022-05-27 14:36 ==
LOC: HO.SSS 10:51
PROVIDERS: PCP Internal Medicine; Visit Provider Internal Medicine Gastroenterology
PROC: 0DJD8ZZ Inspection of Lower Intestinal Tract, Via Natural or Artificial Opening Endoscopic (ICD-10-PCS; CPT 45378; principal; 2022-05-27 12:20)
DX: K21.00 Gastro-esophageal reflux disease with esophagitis, without bleeding (principal); K29.70 Gastritis, unspecified, without bleeding; K58.0 Irritable bowel syndrome with diarrhea; D12.0 Benign neoplasm of cecum; D12.5 Benign neoplasm of sigmoid colon; K57.30 Diverticulosis of large intestine without perforation or abscess without bleeding; K64.0 First degree hemorrhoids; I10 Essential (primary) hypertension; F17.210 Nicotine dependence, cigarettes, uncomplicated; Z79.899 Other long term (current) drug therapy; Z88.0 Allergy status to penicillin
CPT/HCPCS: 43239; 45385; 45380; 36415; 87324; 87493; 87507; 88305; 88342; J2250

== ENCOUNTER → 2022-06-10 08:39 | Outpatient (BNVA) | payer OTHER, SELFPAY | PROVIDERS: PCP Internal Medicine; Visit Provider Nurse Practitioner | DX: K58.0 Irritable bowel syndrome with diarrhea (principal); K21.9 Gastro-esophageal reflux disease without esophagitis; R11.2 Nausea with vomiting, unspecified; K63.5 Polyp of colon; F17.210 Nicotine dependence, cigarettes, uncomplicated | CPT/HCPCS: 99212 ==

== ENCOUNTER → 2022-10-07 14:34 | Outpatient (BNVA) | payer OTHER, SELFPAY | PROVIDERS: PCP Internal Medicine; Referring Provider Internal Medicine; Visit Provider Nurse Practitioner | DX: K58.0 Irritable bowel syndrome with diarrhea (principal); K21.9 Gastro-esophageal reflux disease without esophagitis; Z79.899 Other long term (current) drug therapy | CPT/HCPCS: 99212 ==

== ENCOUNTER 2022-12-20 08:32 | Outpatient (REF) | payer OTHER, SELFPAY ==
--- NOTE | 2022-12-20 08:38 | ECG_ITS ---
Test Reason : CHEST PAIN Blood Pressure : / mmHG Vent. Rate : 063 BPM Atrial Rate : 063 BPM P-R Int : 152 ms QRS Dur : 092 ms QT Int : 418 ms P-R-T Axes : 040 019 022 degrees QTc Int : 427 ms Normal sinus rhythm Minimal voltage criteria for LVH, may be normal variant ( Sokolow-Tatum ) Borderline ECG When compared with ECG of 24-JUL-2007 16:34, Premature ventricular complexes are no longer Present Nonspecific T wave abnormality now evident in Inferior leads Referred By: Orly Bustillo Electronically Signed By:KEARA JIN
[2022-12-20 10:01] LABS: Alanine Aminotransferase 13 U/L (0-40); Alkaline Phosphatase 91 U/L (39-117); Anion Gap 12 (12-20); Aspartate Amino Transferase 18 U/L (5-37); Bilirubin Total 0.4 mg/dL (0.0-1.0); Blood Urea Nitrogen 12 mg/dL (9-16); Calcium 9.6 mg/dL (8.4-10.2); Carbon Dioxide 26 mmol/L (22-29); Chloride 106 mmol/L (96-108); Cholesterol 156 mg/dL; Estimated Glomerular Filt Rate > 60; Glucose Fasting 109 mg/dL (60-99); HDL Cholesterol 25 mg/dL; LDL Cholesterol Calculated 102 mg/dl; Potassium 3.6 mmol/L (3.3-5.1); Sodium 140 mmol/L (135-145); Total Protein 7.6 g/dL (6.5-8.0); Triglycerides 145 mg/dL
== END 2022-12-20 08:33 | disposition home or self-care (01) ==
LOC: HO.LAB 08:32
PROVIDERS: PCP Internal Medicine; Visit Provider Internal Medicine
DX: Z00.00 Encounter for general adult medical examination without abnormal findings (principal); R07.9 Chest pain, unspecified
CPT/HCPCS: 36415; 80053; 80061; 93005

== ENCOUNTER 2023-05-04 14:34 | Outpatient (AMB) | payer OTHER, SELFPAY ==
[2023-05-04 14:51] VITALS: BP 132/90; PULSE 85; O2SAT 97; BMI 24.1
--- NOTE | 2023-05-04 14:51 | MHC.PC.OV ---
Vital Signs 05/04/23 14:51 Height 5 ft 11 in Weight 173 lb BMI 24.1 BP 132/90 H Blood Pressure Location Lt brachial Position Sitting Pulse 85 Pulse Source Pulse Oximeter Pulse Oximetry (%) 97 Oxygen Delivery Method Room Air Intake Visit Reasons: depression Generalist Required: No Accompanied by: Self / Same As Patient Allergies amoxicillin Allergy (Severe, Verified 05/04/23 15:00) Anaphylaxis varenicline [From Chantix] Allergy (Intermediate, Verified 05/04/23 15:00) vivid dreams Medication List - Last Reconciled 05/04/23 by Orly Bustillo MD amitriptyline 25 mg PO BEDTIME blood pressure test kit-large ([facility] Blood Pressure Monitor kit) As directed buspirone 7.5 mg PO BID 90 days eluxadoline (Viberzi) 75 mg PO BID fluoxetine 20 mg PO QAM 90 days hydrochlorothiazide 25 mg PO DAILY 30 days loratadine 10 mg PO DAILY PRN 90 days omeprazole 40 mg PO DAILY 30 days tramadol 50 mg PO Q6H PRN 30 days Tobacco use date assessed: 05/04/23 Dental Screening Dental Screen Date: 05/04/23 Did you have a dental visit in the last 12 months?: Yes Did you have a dental problem in the last 6 months where you did not have access to dental care?: No Was dental information given to patient?: Patient has dentist HPI HPI Comments History of Present Illness Details This is a 49-year-old male with moderate major depression, anxiety, hypertension and GERD that comes today for follow-up on his conditions. Depression has been stable with SSRIs. Anxiety well controlled with buspirone. Blood pressure stable. GERD also stable with PPIs. No chest pain or shortness of breath. [facility] Medical History Hidradenitis suppurativa Hearing loss Dyspnea Onychomycosis Moderate recurrent major depression Headache Adult general medical exam Screening for prostate cancer Diarrhea Hematochezia Lower abdominal pain Colon cancer screening Bloody stools Smoker Neck pain Lumbar degenerative disc disease Allergic rhinitis GERD (gastroesophageal reflux disease) Essential hypertension Surgical History History of colonoscopy History of retained foreign body fully removed History of excision of mass History of incision and drainage Family History Father Myocardial infarction Mother Liver cancer Maternal Grandfather Throat cancer Social History Housing: Apartment Alcohol intake: current Alcohol intake frequency: a few times a month Alcohol type: beer Patient Tobacco Use Status: Current everyday Tobacco user Tobacco use type: Cigarette Cigarettes Per Day: 5 Years Smoked: 40 Packs per year/per ci.00 e-Cigarette/Vaping Use: Never Used Second Hand Smoke Exposure: Yes service: No Current occupational status: unemployed and disabled Cognitive needs: No Hearing needs: No Vision needs: No Questionnaire PHQ-9 Over the last 2 weeks, how often have you been bothered by any of the following problems? 1. Little interest or pleasure in doing things: nearly every day 2. Feeling down, depressed, or hopeless: nearly every day 3. Trouble falling or staying asleep, or sleeping too much: more than half the days 4. Feeling tired or having little energy: more than half the days 5. Poor appetite or overeating: more than half the days 6. Feeling bad about yourself - or that you are a failure or have let yourself or your family down: several days 7. Trouble concentrating on things, such as reading the newspaper or watching television: several days 8. Moving or speaking so slowly that other people could have noticed. Or the opposite - being so fidgety or restless that you have been moving around a lot more than usual: not at all 9. Thoughts that you would be better off or of hurting yourself in some way: several days Total score: 15 Depression Screening Interpretation: Positive Depression Screening Follow-up: Existing condition and In treatment Depression Screening Done: Yes 40357 - PHQ-9 Billing: Yes Source: Developed by Drs. Tab Montalvo, Marley Lopes, Joseph Hammond and colleagues, with an educational hoang from [employer]. Thrive Questionnaire Date Thrive assessed: 07/05/22 AUDIT C Alcohol Use Questionnaire (AUDIT-C) 1. How often do you have a drink containing alcohol?: Monthly or less 2. How many drinks containing alcohol do you have on a typical day when you are drinking?: 1 or 2 3. How often do you have six or more drinks on one occasion?: Never Total Score: 1 Score Reviewed/Action Taken: Yes ERNO-7 AMB Questionnaire RENO-7 Date RENO - 7 assessed: 07/05/22 Feeling nervous, anxious, or on edge: 3 = Nearly every day Not being able to stop or control worryin = Nearly every day Worrying too much about different things: 3 = Nearly every day Trouble relaxin = Nearly every day Being so restless that it is hard to sit still: 1 = Several days Becoming easily annoyed or irritable: 1 = Several days Feeling afraid as if something awful might happen: 1 = Several days Total RENO-7 score (0-4 normal; 5-9 mild; 10-14 moderate; 15-21 severe): 15 Source: Developed by Drs. Tab Montalvo, Marley Lopes, Joseph Hammond and colleagues, with an educational hoang from [employer]. RENO-7 Assessment Billing RENO-7 Assessment Tool: RENO-7 Assessment 62197 Review of Systems Const All systems reviewed & are unremarkable except as noted in HPI and below Eyes Reports no additional complaints, Denies change in vision and Denies other visual disturbances Card Denies chest pain at rest, Denies chest pain with activity, Denies edema, Denies irregular heart rhythm, Denies claudication, Denies dyspnea, Denies dyspnea on exertion, Denies orthopnea, Denies paroxysmal nocturnal dyspnea and Denies slow heart rate Resp Denies cough, Denies dyspnea and Denies dyspnea on exertion GI Denies abdominal pain, Denies change in bowel habits, Denies excessive flatus, Denies nausea and Denies vomiting Denies urinary hesitancy, Denies urinary incontinence and Denies urinary urgency Musc Denies atrophy, Denies deformity and Denies limited range of motion Skin/Breast Denies bleeding lesions, Denies changing lesions and Denies rash Physical exam (Primary Care) Vital Signs: Last Vital Signs Pulse 85 05/04/23 14:51 BP 132/90 H 05/04/23 14:51 Pulse Ox 97 05/04/23 14:51 Oxygen Delivery Method Room Air 05/04/23 14:51 BMI result Body Mass Index 24.1 Tobacco/Smoking Status: Tobacco use Status Tobacco use date assessed 05/04/23 05/04/23 14:52 Patient Tobacco Use Status Current everyday Tobacco 05/04/23 14:52 Tobacco use type Cigarette 05/04/23 14:52 e-Cigarette/Vaping Use Never Used 05/04/23 14:52 PHQ-9: PHQ-9 Score PHQ-9: Total score 15 05/04/23 15:04 Depression Screening Interpretation: Positive Depression Screening Follow-up: Existing condition and In treatment Thrive Assessment: Date of Thrive Assessment Date Thrive assessed 07/05/22 05/04/23 14:52 Eyes General: appearance normal, both eyes and all related structures Eyelids: Yes eyelids normal Conjunctivae: conjunctivae normal Neck Neck: Yes normal visual inspection and Yes supple Resp Effort & Inspection: normal respiratory effort Auscultation: clear to auscultation bilaterally Cardio Jugular venous distension: no JVD Rate: regular rate Rhythm: regular rhythm Heart sounds: S1 normal heart sound present and S2 normal heart sound present Extrem General: Yes full ROM Psych Appearance: grossly normal Assessment and Plan Assessment & Plan (1) Moderate recurrent major depression: Code(s): F33.1 - Major depressive disorder, recurrent, moderate Plan: Continue fluoxetine. Follow-up with psychiatry. (2) Anxiety: Code(s): F41.9 - Anxiety disorder, unspecified Plan: Continue buspirone. Follow-up with psychiatry. (3) Essential hypertension: Code(s): I10 - Essential (primary) hypertension Plan: Continue hydrochlorothiazide. Blood pressure goal is equal or less than 130/80. (4) GERD (gastroesophageal reflux disease): Code(s): K21.9 - Gastro-esophageal reflux disease without esophagitis Plan: Continue PPIs. Orders: Orders Comprehensive [place]. Panel Fast Today R07.9 - Chest pain, unspecified Lipid Panel Today E78.5 - Hyperlipidemia, unspecified Coding Level of Care Code Est Pt Level 4 (19484) Diagnoses Moderate recurrent major depression F33.1 Anxiety F41.9 Essential hypertension I10 GERD (gastroesophageal reflux disease) K21.9 Additional Codes RENO-7 Assessment Billing - RENO-7 Assessment Tool: RENO-7 Assessment 06698 ([id number]) Time Spent (min) 22
== END 2023-05-04 15:07 | disposition home or self-care (01) ==
PROVIDERS: PCP Internal Medicine; Visit Provider Internal Medicine
DX: F33.1 Major depressive disorder, recurrent, moderate (principal); F41.9 Anxiety disorder, unspecified; I10 Essential (primary) hypertension; K21.9 Gastro-esophageal reflux disease without esophagitis
CPT/HCPCS: 96127; 99214

== ENCOUNTER 2023-08-31 09:33 | Outpatient (AMB) | payer OTHER, SELFPAY ==
--- NOTE | 2023-08-31 09:40 | A.OFFVIS_ITS ---
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 Allergies amoxicillin Allergy (Severe, Verified 05/04/23 15:00) Anaphylaxis varenicline [From Chantix] Allergy (Intermediate, Verified 05/04/23 15:00) vivid dreams Medication List - Last Reconciled 08/31/23 by Grady Jean-Baptiste MD amitriptyline 25 mg PO BEDTIME blood pressure test kit-large ([facility] Blood Pressure Monitor kit) As directed buspirone 7.5 mg PO BID eluxadoline (Viberzi) 75 mg PO BID fluoxetine 20 mg PO QAM 90 days hydrochlorothiazide 25 mg PO DAILY 30 days loratadine 10 mg PO DAILY PRN 90 days omeprazole 40 mg PO DAILY 30 days tramadol 50 mg PO Q6H PRN 30 days HPI HPI Comments History of Present Illness Details Juan was referred here for abnormal EKG. EKG suggestive of left ventricular hypertrophy. No echo was performed. Patient has longstanding history of hypertension. He has been on hydrochlorothiazide for many years. Denies any cardiovascular symptoms. He said he remains very active denies any exertional chest pain or shortness of breath. After being told that his EKG has been abnormal he is low concerned about it. He denies any orthopnea, PND, leg edema. Denies any prolonged palpitation irregular heartbeat. [facility] Medical History Hidradenitis suppurativa Hearing loss Dyspnea Onychomycosis Moderate recurrent major depression Headache Adult general medical exam Screening for prostate cancer Diarrhea Hematochezia Lower abdominal pain Colon cancer screening Bloody stools Smoker Neck pain Lumbar degenerative disc disease Allergic rhinitis GERD (gastroesophageal reflux disease) Essential hypertension Surgical History History of colonoscopy History of retained foreign body fully removed History of excision of mass History of incision and drainage Family History Father Myocardial infarction Mother Liver cancer Maternal Grandfather Throat cancer Social History Housing: Apartment Alcohol intake: current Alcohol intake frequency: a few times a month Alcohol type: beer Patient Tobacco Use Status: Current everyday Tobacco user Tobacco use type: Cigarette Cigarettes Per Day: 5 Years Smoked: 40 e-Cigarette/Vaping Use: Never Used Second Hand Smoke Exposure: Yes service: No Current occupational status: unemployed and disabled Cognitive needs: No Hearing needs: No Vision needs: No Review of Systems Const Denies weakness Eyes Denies loss of vision ENT Denies dizziness Card Denies chest pain, Denies chest pain with activity, Denies syncope, Denies rapid heart rate, Denies pedal edema, Denies edema, Denies leg edema, Denies lightheadedness, Denies palpitations, Denies dyspnea, Denies dyspnea on exertion and Denies orthopnea Resp Denies cough, Denies dyspnea, Denies dyspnea on exertion and Denies wheezing GI Denies hematochezia and Denies change in stool character Denies dysuria and Denies urinary frequency Musc Denies abnormal gait, Denies muscle cramps, Denies muscle weakness, Denies numbness, Denies radiating pain into limb and Denies tingling Skin/Breast Denies nail changes and Denies rash Neuro Denies abnormal gait, Denies dizziness, Denies syncope, Denies loss of vision, Denies memory loss, Denies numbness, Denies tingling and Denies weakness Psych Denies depression and Denies memory loss Endo Denies palpitations Jon/Lymph Reports easy bruising and Reports other (anemia) Aller/Immun Denies wheezing Physical Exam Vital Signs: Last Vital Signs Pulse 76 08/31/23 09:41 BP 120/74 08/31/23 09:41 BMI result Body Mass Index 24.8 Const General: cooperative, comfortable, no acute distress, well developed, alert, awake and Physically active Nutritional Appearance: average body habitus and well nourished Orientation/consciousness: patient oriented x3 Limitations: no limitations HEENT Head: Yes normocephalic and Yes atraumatic Neck Neck: Yes trachea midline, Yes supple and Yes no JVD Resp Effort & Inspection: normal respiratory effort Auscultation: clear to auscultation bilaterally Cardio Jugular venous distension: no JVD Palpation: normal PMI Rate: regular rate Rhythm: regular rhythm Heart sounds: S1 normal heart sound present, S2 normal heart sound present, no click, no gallops, no murmurs and no rubs GI Auscultation: normal bowel sounds Skin General skin exam: no rashes or lesions noted Neuro General: patient oriented x3 and no focal motor deficits Extrem General: Yes no clubbing, cyanosis or edema Psych Appearance: grossly normal Office Procedures EKG Details: EKG shows normal sinus rhythm with voltage criteria for LVH with poor R-wave progression from V1 to V2 which could be a normal finding [id number], Complete Assessment & Plan Assessment & Plan (1) Abnormal EKG: Code(s): R94.31 - Abnormal electrocardiogram [ECG] [EKG] Plan: Abnormal EKG which is suggestive of left ventricular hypertrophy and/or hypertensive heart disease. He has longstanding history of hypertension is likely that he might have LVH. Would suggest an echocardiogram to further assess for LV systolic and diastolic function to evaluate for degree of left ventricular hypertrophy. Also possible these findings could be due to his thin body habitus. Further treatment based on the findings of echocardiogram. If he has no significant LVH, continue to monitor EKG on annual basis through your office. Blood pressure is currently well optimized encouraged to continue to participate in physical activity as tolerated. Will follow up in the clinic if need be. Thank you for allowing me to partake in his care Orders: Orders CA echo transthoracic complete Today R94.31 - Abnormal electrocardiogram [ECG] [EKG] Medications: Changed From buspirone 7.5 mg PO BID 90 days 180 tabs 1RF F41.9 - Anxiety disorder, unspecified To buspirone 7.5 mg PO BID F41.9 - Anxiety disorder, unspecified From eluxadoline (Viberzi) must administer with a meal/food 75 mg PO BID 60 tabs 3RF K58.0 - Irritable bowel syndrome with diarrhea To eluxadoline (Viberzi) must administer with a meal/food 75 mg PO BID K58.0 - Irritable bowel syndrome with diarrhea Quality Reporting (2019) Adult ([facility] 13808/18/68) Smoking risk assessment performed?: Yes Patient Tobacco Use Status: Current everyday Tobacco user Coding Level of Care Code New Pt Level 3 (63143) Diagnoses Abnormal EKG R94.31 CPT Codes EKG - CPT: 14971-[id number], Complete ([id number])
[2023-08-31 09:41] VITALS: BP 120/74; PULSE 76; BMI 24.8
== END 2023-08-31 09:59 | disposition home or self-care (01) ==
PROVIDERS: PCP Internal Medicine; Visit Provider Internal Medicine Cardiovascular Disease
DX: R94.31 Abnormal electrocardiogram [ECG] [EKG] (principal)
CPT/HCPCS: 93010; 99203

== ENCOUNTER → 2023-08-31 09:33 | Outpatient (BNVA) | payer OTHER, SELFPAY | PROVIDERS: PCP Internal Medicine; Visit Provider Internal Medicine Cardiovascular Disease | DX: R94.31 Abnormal electrocardiogram [ECG] [EKG] (principal) | CPT/HCPCS: 93005; 99202 ==